=== PATIENT | male | born 2000 | race Caucasian/White ===

== ENCOUNTER 2022-07-03 17:30 | Emergency (ER) | payer OTHER ==
[2022-07-03 18:17] VITALS: BP 105/68; PULSE 92; RESP 18; TEMP 98.2; BMI 21.6
== END 2022-07-03 19:07 | disposition home or self-care (01) ==
LOC: JER 17:30 → JERFT 17:30
DX: M25.561 Pain in right knee (principal); M79.10 Myalgia, unspecified site; V89.2XXA Person injured in unspecified motor-vehicle accident, traffic, initial encounter; W50.1XXA Accidental kick by another person, initial encounter; Y93.66 Activity, soccer
CPT/HCPCS: 99282-25